=== PATIENT | male | born 1960 | race Caucasian/White ===

== ENCOUNTER 2020-08-08 12:47 | Day surgery (SDC) | payer MEDICAID ==
[2020-08-07 15:14] LABS: COVID AG,FIA SOURCE NASOPHARYNGEAL
[~2020-08-08] VITALS: Ht 165.1 cm; Wt 56.8 kg
[~2020-08-08 12:47] MED LIST: ALBU8HFA IH; LIDOCAINE/PF 2% 5 ML VIAL IM ONE; MONT-35 PO; PRED10 PO; PROPOFOL 1% 20 ML VIAL IVP ONE; SODIUM CHLORIDE 0.9% 1,000 ML IV ONE; SODIUM CHLORIDE 0.9% 1,000 ML ONE
[2020-08-08] MEDS ORDERED: BISA-151 PO (12:58)
[2020-08-08] MEDS ORDERED: OXYGEN THERAPY IH SCH (20:00)
== END 2020-08-08 15:25 | disposition home or self-care (01) ==
LOC: SURGERY 12:47
PROVIDERS: ATTEND Specialist
DX: Z12.11 Encounter for screening for malignant neoplasm of colon (principal); K62.6 Ulcer of anus and rectum; K62.89 Other specified diseases of anus and rectum; J44.9 Chronic obstructive pulmonary disease, unspecified; Z98.890 Other specified postprocedural states; F17.210 Nicotine dependence, cigarettes, uncomplicated; Z79.899 Other long term (current) drug therapy
CPT/HCPCS: 45380; 87426; 88305; C1769; C9803; J2704; J3490; J7030